=== PATIENT | female | born 1990 | race Caucasian/White ===

== ENCOUNTER → 2018-08-03 | Outpatient (CLI) | payer BC ==
[~2018-08-03] MED LIST: BACL10TA PO; CETI10TA17 PO; CHLO25TA14 PO; DIAZ10TA PO; LVT.025T PO; METO-354 PO; TPR25T PO
--- NOTE | 2018-08-03 08:34 | Diagnostic Imaging Report ---
PROCEDURE: CT head without contrast. TECHNIQUE: Multiple contiguous axial images were obtained through the brain without the use of intravenous contrast. Auto Exposure Controls were utilized during the CT exam to meet ALARA standards for radiation dose reduction. INDICATION: Headaches. Comparison is made with prior head CT from 01/08/2012. FINDINGS: Ventricles and sulci are within normal limits. No sulcal effacement, midline shift or hemorrhage is detected. Cisterns are patent. Visualized paranasal sinuses are clear. IMPRESSION: No acute intracranial process is detected. Dictated by: Dictated on workstation # [id number]
== END ==
LOC: RAD 08:01
PROVIDERS: ATTEND Internal Medicine
DX: R51 Headache (principal)
CPT/HCPCS: 70450

== ENCOUNTER → 2022-02-17 | Outpatient (CLI) | payer BC ==
[~2022-02-17] MED LIST changes: +CATHETER FLUSH 10 ML SYR IV PRN; +HOLD METFORMIN - RECEIVED CONTRAST 20 ML VIAL IV SCH; +IOHEXOL 350 MG/ML 100 ML (OMNIPAQUE 350) VIAL IV ONE; +NS 100 ML (IVPB) BAG IV ONE
[2022-02-17 14:37] LABS: BASOPHILS % (AUTO) 0 % (0-10); EOSINOPHILS % (AUTO) 0 % (0-10); HEMATOCRIT 38 % (35-52); HEMOGLOBIN 12.5 g/dL (11.5-16.0); LYMPHOCYTES # (AUTO) 1.8 10^3/uL (1.0-4.0); LYMPHOCYTES % (AUTO) 13 % (12-44); MEAN CORPUSCULAR HEMOGLOBIN 28 pg (25-34); MEAN CORPUSCULAR HGB CONC 33 g/dL (32-36); MEAN CORPUSCULAR VOLUME 85 fL (80-99); MEAN PLATELET VOLUME 8.7 fL (9.0-12.2); MONOCYTES # (AUTO) 0.4 10^3/uL (0.0-1.0); MONOCYTES % (AUTO) 3 % (0-12); NEUTROPHILS # (AUTO) 11.2 10^3/uL (1.8-7.8); NEUTROPHILS % (AUTO) 84 % (42-75); PLATELET COUNT 322 10^3/uL (130-400); WHITE BLOOD COUNT 13.4 10^3/uL (4.3-11.0)
--- NOTE | 2022-02-17 14:46 | Diagnostic Imaging Report ---
CLINICAL INDICATION: Patient with chest pain and dyspnea. COVID Positive. EXAM: CT angiogram of the chest performed with 85 cc Omnipaque 350 IV contrast. Coronal and oblique MIP images of the vasculature were created to better evaluate anatomy. Auto Exposure Controls were utilized during the CT exam to meet ALARA standards for radiation dose reduction. COMPARISON: None. FINDINGS: There is no evidence of pulmonary embolism. There is no thoracic aortic dissection or aneurysm. Lungs are clear. There is no pleural effusion pneumothorax. There is no mediastinal or hilar lymphadenopathy. Nonspecific mildly prominent bilateral axillary lymph nodes are noted with fatty hilum. Mediastinal structures and heart shows no significant abnormality. The visualized portions of the upper abdominal structures are unremarkable. Bone show no significant acute process. IMPRESSION: 1: Unremarkable CT angiogram of the chest with no evidence of pulmonary embolism. 2: Nonspecific mildly prominent bilateral axillary lymph nodes with fatty hilum noted. Dictated by: Dictated on workstation # [id number]
[2022-02-17 14:54] LABS: ALANINE AMINOTRANSFERASE 24 U/L (0-55); ALBUMIN 3.7 GM/DL (3.2-4.5); ALKALINE PHOSPHATASE 57 U/L (40-136); BILIRUBIN,TOTAL 0.2 MG/DL (0.1-1.0); BUN/CREATININE RATIO 16; CALCIUM 8.8 MG/DL (8.5-10.1); CARBON DIOXIDE 20 MMOL/L (21-32); CHLORIDE 108 MMOL/L (98-107); CREATININE SERUM 0.67 MG/DL (0.60-1.30); GFR ESTIMATED 121; GLUCOSE 101 MG/DL (70-105); POTASSIUM 3.6 MMOL/L (3.6-5.0); SODIUM 137 MMOL/L (135-145); TOTAL PROTEIN 6.4 GM/DL (6.4-8.2)
== END ==
LOC: CARD 14:02
PROVIDERS: ATTEND Nurse Practitioner Family
DX: R07.9 Chest pain, unspecified (principal); R06.00 Dyspnea, unspecified
CPT/HCPCS: 36415; 71275; 80053; 84484; 85025; 93005

== ENCOUNTER → 2022-04-06 | Outpatient (CLI) | payer BC ==
[~2022-04-06] MED LIST changes: -CATHETER FLUSH 10 ML SYR IV PRN; -HOLD METFORMIN - RECEIVED CONTRAST 20 ML VIAL IV SCH; -IOHEXOL 350 MG/ML 100 ML (OMNIPAQUE 350) VIAL IV ONE; -NS 100 ML (IVPB) BAG IV ONE
--- NOTE | 2022-04-06 16:33 | Diagnostic Imaging Report ---
INDICATION: Sacral pain AP and lateral views of the sacrum and coccyx are obtained. No fracture or acute bone abnormality is seen. SI joints appear symmetric. IMPRESSION: Negative sacrum and coccyx. Dictated by: Dictated on workstation # [id number]
--- NOTE | 2022-04-06 17:03 | Diagnostic Imaging Report ---
INDICATION: Back pain AP and lateral views of the lumbar spine are obtained. Lumbar vertebrae are normal in height and alignment. There is no fracture or subluxation. Disc spaces are normal in height. IMPRESSION: Negative lumbar spine. Dictated by: Dictated on workstation # [id number]
--- NOTE | 2022-04-06 17:24 | Diagnostic Imaging Report ---
PELVIS 1 TO 2 VIEWS INDICATION: Pelvic pain COMPARISON: None available. TECHNIQUE: AP view of the pelvis FINDINGS: No diastases of the symphysis pubis or SI joints. No hip dislocation. No acute or healing fracture is appreciated in the pelvis. No abnormal soft tissue mineralizations. IMPRESSION: Normal pelvis radiographs. Dictated by: Dictated on workstation # [id number]
== END ==
LOC: RAD 11:01
PROVIDERS: ATTEND Nurse Practitioner Family
DX: M53.3 Sacrococcygeal disorders, not elsewhere classified (principal)
CPT/HCPCS: 72100; 72170; 72220

== ENCOUNTER → 2022-05-22 | Outpatient (CLI) | payer BC ==
[~2022-05-22] MED LIST changes: +GADOTERATE 0.5 MMOL/ML (CLARISCAN) 15 ML VIAL IV ONE
--- NOTE | 2022-05-22 08:26 | Diagnostic Imaging Report ---
PROCEDURE: MRI lumbar spine. TECHNIQUE: Multiplanar, multisequence MRI of the lumbar spine was performed without contrast. INDICATION:Chronic lower back pain. Pelvic pain. COMPARISON: None FINDINGS: For the purposes of this exam, last well-formed disc space is noted to be L5-S1 level. Static alignment is maintained. There is no significant anteroretrolisthesis. There is no evidence of jumped facets. Vertebral body heights are maintained. There is no evidence of acute fracture. Marrow signal is normal throughout. Intervertebral disc heights are well-maintained. Visualized portions of distal cord are unremarkable. Conus terminates at approximately the L1 level. No abnormal intrathecal filling defects are seen. Pre-and paravertebral soft tissue structures are unremarkable. Axial images show no large disc bulge or focal protrusions. There is no significant spinal canal or neuroforaminal stenosis throughout. IMPRESSION: 1. Unremarkable MRI of the lumbar spine. Dictated by: Dictated on workstation # [id number]
--- NOTE | 2022-05-22 09:06 | Diagnostic Imaging Report ---
PROCEDURE: MRI pelvis with and without contrast. TECHNIQUE: Multiplanar, multisequence MRI of the pelvis was performed with and without contrast. INDICATION: Buttock and low back pain. COMPARISON: Lumbar spine MRI from same day. FINDINGS: Bones: No avascular necrosis of femoral heads. There is no bone marrow edema that would suggest stress reaction within the pelvis or proximal femurs. SI joints are normal and there are no features of sacroiliitis. No pathologic enhancement within the osseous structures. Muscles and tendons: The bilateral distal iliopsoas tendons are intact. Proximal hamstring complexes are normal. The gluteus medius and minimus insertions are intact on both sides. No peritrochanteric fluid collection to indicate bursitis. Adductor musculature is normal. Gluteus stephanie muscles are normal in appearance. No pathologic enhancement within the soft tissues of the pelvis. Other: No free pelvic fluid. No pelvic or inguinal lymphadenopathy. The uterus is normal in appearance. There is no concerning adnexal mass. IMPRESSION: No osseous or soft tissue abnormality in the pelvis to account for patient's reported lower back/buttock pain. Dictated by: Dictated on workstation # [id number]
== END ==
LOC: RAD 07:32
PROVIDERS: ATTEND Nurse Practitioner Family
DX: M54.50 Low back pain, unspecified (principal); R10.2 Pelvic and perineal pain
CPT/HCPCS: 72148; 72197